=== PATIENT | male | born 1965 | race American Indian/Alaskan Native ===

== ENCOUNTER 2021-08-09 00:20 | Emergency (ER) | payer OTHER ==
[2021-08-09] MEDS ORDERED: ACETAMINOPHEN 500 MG TAB PO ONE (03:02)
[2021-08-09] MEDS ORDERED: IBUPROFEN 600 MG TAB PO ONE (03:02)
[2021-08-09] MEDS ORDERED: TETANUS,DIPH,PERTUSS(ACELL) VACCINE 0.5 ML SYRINGE IM ONE (03:02)
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
[2021-08-09 05:00] VITALS: BP 155/102
== END 2021-08-09 06:31 ==
LOC: ED 00:20
DX: S01.01XA Laceration without foreign body of scalp, initial encounter (principal); S06.5X9A Traumatic subdural hemorrhage with loss of consciousness of unspecified duration, initial encounter; V89.2XXA Person injured in unspecified motor-vehicle accident, traffic, initial encounter; Y93.89 Activity, other specified; Y92.89 Other specified places as the place of occurrence of the external cause; Y99.8 Other external cause status
CPT/HCPCS: 70450; 72125; 90471; 90715; 99285